=== PATIENT | female | born 1990 | race Caucasian/White ===

== ENCOUNTER 2021-11-23 10:30 | Inpatient (IN) | payer OTHER ==
[~2021-11-23 10:30] MED LIST: ELECTROLYTE-148 SOLN 1,000 ML IV SCH
[2021-11-23 11:38] VITALS: BMI 27.8
[2021-11-23] MEDS ORDERED: FENTANYL/BUPIVACAINE/NS/PF - PCEA - 50 ML DISP.SYRIN EP SCH (12:10)
[2021-11-23] MEDS ORDERED: NALOXONE HCL 0.4 MG/ML VIAL IVPUSH PRN (12:17)
[2021-11-23] MEDS ORDERED: OXYTOCIN 30 UNITS in 0.9% NS 30 UNIT/500 ML INFUS.BAG IVPB ONE (13:50)
[2021-11-23] MEDS ORDERED: OXYTOCIN 30 UNITS in 0.9% NS 30 UNIT/500 ML INFUS.BAG IVPB SCH (14:00)
[2021-11-23] MEDS ORDERED: DEXTROSE 5%-LACTATED RINGERS 1,000 ML IV SCH (14:00)
[2021-11-23] MEDS ORDERED: METHYLERGONOVINE MALEATE 0.2 MG/1 ML AMP IM PRN (14:21)
[2021-11-23] MEDS ORDERED: WITCH HAZEL 50% (TUCKS) 40 PAD/JAR PAD TP PRN (14:21)
[2021-11-23] MEDS ORDERED: ACETAMINOPHEN 325 MG TABLET (FP) PO PRN (14:21)
[2021-11-23] MEDS ORDERED: oxyCODONE HCL 5 MG TABLET PO PRN (14:21)
[2021-11-23] MEDS ORDERED: BENZOCAINE 20% 57 GM BOTTLE TP PRN (14:21)
[2021-11-23] MEDS ORDERED: BENZOCAINE 28 GM HEMORRHOIDAL OINTMENT TP PRN (14:21)
[2021-11-23] MEDS ORDERED: BISACODYL 10 MG SUPP.RECT RC PRN (14:21)
[2021-11-23] MEDS ORDERED: OXYTOCIN 20 UNITS in 0.9% NS 20 UNIT/1,000 ML INFUS.BAG IV SCH (14:30)
[2021-11-23] MEDS ORDERED: D5W-LR W/ 20 UNITS OXYTOCIN 1,000 ML IV SCH (14:30)
[2021-11-23] MEDS ORDERED: FENTANYL/BUPIVACAINE/NS/PF - PCEA - 50 ML DISP.SYRIN EP ONE (16:17)
[2021-11-24 08:47] LABS: BASO % 0.2 % (0-2.0); EOS % 0.3 % (0-4.5); HEMATOCRIT 26.8 % (32.4-45.2); HEMOGLOBIN 9.2 GM/dL (10.7-15.3); LYMPH % 15.4 % (8-40); MCH 31.5 pg (25.7-33.7); MCHC 34.3 g/dl (32.0-36.0); MEAN CELL VOLUME 91.7 fl (80-96); MEAN PLT VOLUME 7.1 fl (7.5-11.1); MONO % 7.6 % (3.8-10.2); NEUT % 76.5 % (42.8-82.8); PLATELET COUNT 168 10^3/uL (134-434); RBC 2.92 M/mm3 (3.60-5.2); RDW 12.5 % (11.6-15.6); WHITE BLOOD COUNT 13.2 K/mm3 (4.0-10.0)
[2021-11-24] MEDS: IBUPROFEN 600 MG TABLET (FP) PO PRN (10:08)
[2021-11-24] MEDS: PRENATAL VITAMINS W/ FOLIC ACID TABLET (FP) PO SCH (10:09)
[2021-11-24] MEDS ORDERED: DIPHTH,PERTUSS(ACELL),TET 0.5 ML DISP.SYRIN IM ONE (12:00)
[2021-11-24] MEDS ORDERED: SENNOSIDES/DOCUSATE COMBO (SENNA PLUS) TABLET (UD) PO PRN (22:00)
[2021-11-25] MEDS: IBUPROFEN 600 MG TABLET (FP) PO PRN ×2 (01:49→08:16)
[2021-11-25 09:00] VITALS: BP 99/57; PULSE 98; TEMP 97.2
[2021-11-25] MEDS: PRENATAL VITAMINS W/ FOLIC ACID TABLET (FP) PO SCH (10:18)
== END 2021-11-25 12:45 | disposition home or self-care (01) | DRG 560 ==
LOC: JLDR 10:30 → J3W 18:00
PROVIDERS: ADMIT Obstetrics & Gynecology; ATTEND Obstetrics & Gynecology
PROC: 10E0XZZ Delivery of Products of Conception, External Approach (ICD-10-PCS; principal; 2021-11-23)
DX: O70.0 First degree perineal laceration during delivery (principal); Z3A.39 39 weeks gestation of pregnancy; Z37.0 Single live birth
CPT/HCPCS: 36415; 59409; 85025; 85461; 86999; 90715